=== PATIENT | male | born 1970 | race Caucasian/White ===

== ENCOUNTER → 2017-05-26 | Outpatient (CLI) | payer OTHER ==
[~2017-05-26] MED LIST: ASPI-496 PO; FEVE1POW PO; FLAX10002 PO; HYDR-3240 PO; IRON1TAB60 PO; Ipratropium/Albuterol Sulfate NPPB; LEVO750T26 PO; LOVA20TA2 PO; MELA1TAB22 PO; METF500T27 PO; METO10TA2 PO; MULT-658 PO; OMEG1CAP6 PO; OMEP40CA6 PO; PANT40TA3 PO; PARO10TA3 PO; TRAM-47 PO; TRAM100T13 PO; TRAZ50TA18 PO; VERA180C2 PO; ZOLP10TA5 PO
== END | disposition home or self-care (01) ==
LOC: CFH 14:10
PROVIDERS: ATTEND Family Medicine
DX: Z13.820 Encounter for screening for osteoporosis (principal); M85.88 Other specified disorders of bone density and structure, other site; E29.1 Testicular hypofunction
CPT/HCPCS: 77080